=== PATIENT | male | born 1960 | race Caucasian/White ===

== ENCOUNTER 2019-01-06 10:51 | Emergency (ER) | payer OTHER ==
[2019-01-06] MEDS: Diltiazem 50 MG/10 ML SDV IVPUSH ONE (11:12)
[2019-01-06] MEDS: Sodium Chloride 0.9% 10 ML Syringe FLUSH PRN (11:15)
[2019-01-06] MEDS: Diltiazem 50 MG/10 ML SDV ONE (11:16)
[2019-01-06] MEDS: Sodium Chloride 0.9% 1,000 ML IV SCH (11:29)
--- NOTE | 2019-01-06 11:52 | EDM.PDOC ---
ED HPI GENERAL MEDICAL PROBLEM - General Chief Complaint: Cardiovascular Problem Stated Complaint: POSSIBLE HEART ATTACK Time Seen by Provider: 01/06/19 11:02 Source of Information: Reports: Patient, RN Notes Reviewed - History of Present Illness INITIAL COMMENTS - FREE TEXT/NARRATIVE: 58 year old male with onset of palpitations, dizziness about 1 hr ago. No chest pain or dyspnea today. Has had episodes like this in the past many times , usually brief. The palpitations this time are persisting. Has never been diagnosed with a fib. Hx Htn on meds for that. No other known medical problems , does not smoke. No other known medical problems. - Related Data Allergies Allergy/AdvReac Type Severity Reaction Status Date / Time No Known Allergies Allergy Verified 01/06/19 11:03 Home Meds: Home Meds Lisinopril/Hydrochlorothiazide [Lisinopril-Hctz 10-12.5 mg Tab] 1 tab PO DAILY 07/02/15 [History] Metoprolol Succinate [Toprol XL] 25 mg PO DAILY 07/02/15 [History] Diltiazem [Cardizem CD] 120 mg PO DAILY #30 cap.er 01/06/19 [Rx] Lisinopril 10 mg PO DAILY #30 tablet 01/06/19 [Rx] Past Medical History HEENT History: Reports: Impaired Vision Cardiovascular History: Reports: High Cholesterol, Hypertension - Past Surgical History Other HEENT Surgeries/Procedures: sx on nose Other Musculoskeletal Surgeries/Procedures:: 2 hernia repairs to the groin area Social & Family History - Tobacco Use Smoking Status *Q: Never Smoker - Caffeine Use Caffeine Use: Reports: Soda ED ROS GENERAL - Review of Systems Review Of Systems: See Below Constitutional: Denies: Fever, Chills, Diaphoresis HEENT: Reports: No Symptoms Respiratory: Denies: Shortness of Breath Cardiovascular: Reports: Palpitations. Denies: Chest Pain GI/Abdominal: Denies: Abdominal Pain, Nausea, Vomiting Musculoskeletal: Reports: No Symptoms Skin: Reports: No Symptoms Neurological: Reports: Dizziness. Denies: Numbness, Tingling, Trouble Speaking , Difficulty Walking, Weakness ED EXAM, GENERAL - Physical Exam Exam: See Below General Appearance: Alert, No Apparent Distress Eye Exam: Bilateral Eye: PERRL Throat/Mouth: Normal Inspection, Normal Oropharynx Head: Atraumatic Neck: Supple, Full Range of Motion Respiratory/Chest: No Respiratory Distress, Lungs Clear, Normal Breath Sounds Cardiovascular: Tachycardia, Irregularly Irregular GI/Abdominal: Soft, Non-Tender Back Exam: No: CVA Tenderness (L), CVA Tenderness (R) Extremities: Normal Inspection, Normal Range of Motion. No: Pedal Edema, Leg Pain Neurological: Alert, Oriented, No Motor/Sensory Deficits Skin Exam: Warm, Dry, Normal Color EKG INTERPRETATION EKG Date: 01/06/19 Rhythm: A-Fib [place]: Normal P-Wave: Absent QRS: Normal ST-T: Normal Course - Vital Signs Last Recorded V/S: Last Vital Signs Temp 97.5 F 01/06/19 14:20 Pulse 80 01/06/19 14:20 Resp 20 01/06/19 14:20 BP 127/75 01/06/19 14:20 Pulse Ox 97 01/06/19 14:20 - Orders/Labs/Meds Orders: Active Orders 24 hr Category Date Time Status EKG 12 Lead [EKG Documentation Completion] [RC] STAT Care 01/06/19 11:14 Active Peripheral IV Care [RC] . DIRECTED Care 01/06/19 11:15 Active Peripheral IV Insertion Adult [OM.PC] Stat Oth 01/06/19 11:14 Ordered Labs: Laboratory Tests 01/06/19 01/06/19 Range/Units 11:05 11:05 WBC 9.45 H (4.23-9.07) K/mm3 RBC 5.48 (4.63-6.08) M/mm3 Hgb 17.9 H (13.7-17.5) gm/L Hct 46.8 (40.1-51.0) % MCV 85.4 (79.0-92.2) fl MCH 30.9 (25.7-32.2) pg MCHC 32.8 (32.2-35.5) g/dl RDW Std Deviation 38.3 (35.1-43.9) fL Plt Count 270 (163-337) K/mm3 MPV 9.2 L (9.4-12.3) fl Neut % (Auto) 59.1 (34.0-67.9) % Lymph % (Auto) 32.7 (21.8-53.1) % [place] % (Auto) 7.1 (5.3-12.2) % Eos % (Auto) 0.8 (0.8-7.0) Baso % (Auto) 0.3 (0.1-1.2) % Neut # (Auto) 5.58 H (1.78-5.38) K/mm3 Lymph # (Auto) 3.09 (1.32-3.57) K/mm3 [place] # (Auto) 0.67 (0.30-0.82) K/mm3 Eos # (Auto) 0.08 (0.04-0.54) K/mm3 Baso # (Auto) 0.03 (0.01-0.08) K/mm3 Manual Slide Review Abnormal smear Sodium 139 (136-145) mEq/L Potassium 3.5 (3.5-5.1) mEq/L Chloride 103 (98-107) mEq/L Carbon Dioxide 21 (21-32) mEq/L Anion Gap 18.5 H (5-15) BUN 11 (7-18) mg/dL Creatinine 1.0 (0.7-1.3) mg/dL Est Cr Clr Drug Dosing 85.17 mL/min Estimated GFR (MDRD) > 60 (>60) mL/min BUN/Creatinine Ratio 11.0 L (14-18) Glucose 120 H (74-106) mg/dL Calcium 9.8 (8.5-10.1) mg/dL Total Bilirubin 1.8 H (0.2-1.0) mg/dL AST 27 (15-37) U/L ALT 49 (16-63) U/L Alkaline Phosphatase 105 (46-116) U/L Troponin I < 0.017 (0.00-0.056) ng/mL Total Protein 7.7 (6.4-8.2) g/dl Albumin 4.1 (3.4-5.0) g/dl Globulin 3.6 gm/dL Albumin/Globulin Ratio 1.1 (1-2) Meds: Medications Discontinued Medications Generic Name Dose Route Start Last Admin Trade Name Freq PRN Reason Stop Dose Admin Diltiazem HCl Confirm 01/06/19 11:08 01/06/19 11:16 Cardizem Administered 01/06/19 11:09 Not Given Dose 50 mg .ROUTE .STK-MED ONE Diltiazem HCl 20 mg 01/06/19 11:15 01/06/19 11:12 Cardizem IVPUSH 01/06/19 11:16 20 mg ONETIME ONE Administration Diltiazem HCl Confirm 01/06/19 13:15 01/06/19 13:20 Cardizem Administered 01/06/19 13:16 Not Given Dose 120 mg .ROUTE .STK-MED ONE Diltiazem HCl 120 mg 01/06/19 13:45 01/06/19 13:35 Cardizem Cd PO 01/06/19 13:46 120 mg ONETIME ONE Administration Sodium Chloride 1,000 mls @ 150 mls/hr 01/06/19 11:15 01/06/19 11:29 Normal Saline IV 150 mls/hr ASDIRECTED MITESH Administration Sodium Chloride 500 mls @ 999 mls/hr 01/06/19 13:08 Normal Saline IV 01/06/19 13:38 .BOLUS ONE Sodium Chloride 10 ml 01/06/19 11:14 01/06/19 11:15 Saline Flush FLUSH 10 ml ASDIRECTED PRN Administration Keep Vein Open - Re-Assessments/Exams Free Text/Narrative Re-Assessment/Exam: 01/06/19 21:40 with diltiazam 20 mg IV his heart rate came down into the 80's. Continued a fib for awhile and than converted about an hour after IV diltiazam. We did give diltiazam 120 mg PO. Labs, CXR nl. He stayed in sinus rythm. Discharge instr. as documented. Departure - Departure Time of Disposition: 14:30 Disposition: Home, Self-Care 01 Condition: Fair Clinical Impression: Atrial fibrillation with RVR Prescriptions: Diltiazem [Cardizem CD] 120 mg PO DAILY #30 cap.er Lisinopril 10 mg PO DAILY #30 tablet Instructions: Atrial Fibrillation, [id number] Referrals: Bandar Valdez MD [Primary Care Provider] - Forms: ED Department Discharge Additional Instructions: off work the remainder of today, stop the lisinopril/hctz. start lisinopril 10 mg daily and diltiazam 120 mg daily. Check your BP and heart rate once or twice daily and keep a log for your regular medical provider. Follow up with your regular medical provider in about 6 to 8 days, call for appt. return to ED as needed if symptoms reoccuring or worsening in any way. - My Orders Last 24 Hours: My Active Orders 01/06/19 11:14 EKG 12 Lead [EKG Documentation Completion] [RC] STAT Peripheral IV Insertion Adult [OM.PC] Stat 01/06/19 11:15 Peripheral IV Care [RC] . DIRECTED - Assessment/Plan Last 24 Hours: My Active Orders 01/06/19 11:14 EKG 12 Lead [EKG Documentation Completion] [RC] STAT Peripheral IV Insertion Adult [OM.PC] Stat 01/06/19 11:15 Peripheral IV Care [RC] . DIRECTED
--- NOTE | 2019-01-06 11:57 | CR ---
Chest: Portable view of the chest was obtained. Comparison: Prior chest x-ray of 07/02/15. Heart size and mediastinum are normal. Lungs are clear. Slight scoliosis is noted within the spine. Mild degenerative spurring is noted within the spine. Impression: 1. Nothing acute is seen on portable chest x-ray. Diagnostic code #2
[2019-01-06] MEDS ORDERED: Diltiazem 120 MG Cap.CD PO ONE (13:07)
[2019-01-06] MEDS ORDERED: Sodium Chloride 0.9% 500 ML IV ONE (13:08)
[2019-01-06] MEDS: Diltiazem IR 60 MG Tab ONE (13:20)
[2019-01-06] MEDS: Diltiazem 120 MG Cap.CD PO ONE (13:35)
[2019-01-06 16:49] VITALS: BP 127/75
== END 2019-01-06 14:50 | disposition home or self-care (01) ==
LOC: JD.ED 10:51
DX: I48.91 Unspecified atrial fibrillation (principal); I10 Essential (primary) hypertension; Z79.899 Other long term (current) drug therapy
CPT/HCPCS: 36415; 71045; 80053; 84484; 85025; 93005; 96361; 96374; 99285; A9270; J3490; J7040; 93010; 99284

== ENCOUNTER 2019-09-15 21:48 | Emergency (ER) | payer SELFPAY ==
[2019-09-15 21:57] VITALS: BP 164/89; PULSE 70
--- NOTE | 2019-09-16 02:02 | EDM.PDOC ---
ED HPI GENERAL MEDICAL PROBLEM - General Chief Complaint: Cardiovascular Problem Stated Complaint: HEART IN A-FIB Time Seen by Provider: 09/16/19 00:47 Source of Information: Reports: Patient, Family () History Limitations: Reports: No Limitations - History of Present Illness INITIAL COMMENTS - FREE TEXT/NARRATIVE: Mr. Peres is a very pleasant 59-year-old man with a past medical history significant for paroxysmal atrial fibrillation, initially diagnosed in this ED on 01/06/2019. He states that he subsequently followed up with a Pouncing Lathe Operator who performed a transthoracic echocardiogram, which the patient states was normal. He was started on Xarelto and Toprol-XL. He states that he has been asymptomatic until tonight. He states that around 19:50, he developed a "fluttering" sensation in his chest that lasted for about a minute, then, around 21:30, while in bed, he felt that his heart was going fast and irregular. He became diaphoretic. He states that he got up, felt fine, but then developed the same symptoms when en route to the ED. His symptoms resolved prior to arrival to the ED, and have not recurred since. The patient reports that his lungs have felt heavy for the past few days, but he denies recent fever or chills, cough, chest discomfort, nausea, vomiting, constipation, diarrhea, or urinary symptoms. No recent headache or ear pain. The patient's PCP is Dr. Bandar Valdez. His Pouncing Lathe Operator is Dr. Riky Parr. The patient believes that he last saw Dr. Parr in April. The patient did receive an influenza vaccine this season. - Related Data Allergies Allergy/AdvReac Type Severity Reaction Status Date / Time No Known Allergies Allergy Verified 09/15/19 21:57 Home Meds: Home Meds Lisinopril/Hydrochlorothiazide [Lisinopril-Hctz 10-12.5 mg Tab] 1 tab PO DAILY 07/02/15 [History] Metoprolol Succinate [Toprol XL] 25 mg PO BID 07/02/15 [History] Aspirin 81 mg PO DAILY 09/15/19 [History] Rivaroxaban [Xarelto] 0 mg PO DAILY 09/15/19 [History] atorvaSTATin [Lipitor] 20 mg PO BEDTIME 09/15/19 [History] Past Medical History HEENT History: Reports: Impaired Vision Cardiovascular History: Reports: Afib (paroxysmal), High Cholesterol, Hypertension Endocrine/Metabolic History: Reports: Obesity/BMI 30+, Other (See Below) ( Prediabetes) - Past Surgical History HEENT Surgical History: Reports: Naso-Sinus Surgery (Rhinoplasty), Oral Surgery (wisdom teeth extraction), Tonsillectomy GI Surgical History: Reports: Hernia, Inguinal (bilateral, x 2) Social & Family History - Tobacco Use Smoking Status *Q: Never Smoker - Caffeine Use Caffeine Use: Reports: Tea - Alcohol Use Alcohol Use History: Yes Alcohol Use Frequency: Socially - Recreational Drug Use Recreational Drug Use: No - Living Situation & Occupation Living situation: Reports: , with Spouse, with Family (3 kids) 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 ED EXAM, GENERAL - Physical Exam Exam: See Below Exam Limited By: No Limitations General Appearance: Alert, WD/WN, No Apparent Distress Eye Exam: Bilateral Eye: EOMI, Normal Inspection Ears: Normal External Exam, Hearing Grossly Normal Nose: Normal Inspection Throat/Mouth: Normal Inspection, Normal Lips, Normal Voice, No Airway Compromise Head: Atraumatic, Normocephalic Neck: Normal Inspection, Full Range of Motion Respiratory/Chest: No Respiratory Distress, Lungs Clear, Normal Breath Sounds, No Accessory Muscle Use Cardiovascular: Normal Peripheral Pulses, Regular Rate, Rhythm, No Edema, No Gallop, No JVD, No Murmur, No Rub Peripheral Pulses: 4+: Radial (L), Radial (R) GI/Abdominal: Normal Bowel Sounds, Soft, Non-Tender, No Organomegaly, No Distention, No Abnormal Bruit, No Mass (Male) Exam: Deferred Rectal (Males) Exam: Deferred Back Exam: Normal Inspection, Full Range of Motion, NT Extremities: Normal Inspection, Normal Range of Motion, No Pedal Edema, Normal Capillary Refill Neurological: Alert, Oriented, Normal Cognition, No Motor/Sensory Deficits Psychiatric: Normal Affect Skin Exam: Warm, Dry, Intact, Normal Color, No Rash EKG INTERPRETATION EKG Date: 09/15/19 Time: 21:51 Rhythm: NSR Rate (Beats/Min): 68 [place]: Normal P-Wave: Present (1 AVB) QRS: Normal ST-T: Normal QT: Normal Comparison: Change From Previous EKG (Was in A-fib w/ RVR 01/06/2019) Course - Vital Signs Last Recorded V/S: Last Vital Signs Temp 36.4 C 09/15/19 21:53 Pulse 70 09/15/19 21:53 Resp 16 09/15/19 21:53 BP 164/89 H 09/15/19 21:53 Pulse Ox 98 09/15/19 21:53 - Orders/Labs/Meds Labs: Laboratory Tests 09/15/19 09/15/19 09/15/19 Range/Units 21:59 21:59 21:59 WBC 8.34 (4.23-9.07) K/mm3 RBC 4.80 (4.63-6.08) M/mm3 Hgb 15.1 D (13.7-17.5) gm/dl Hct 42.2 (40.1-51.0) % MCV 87.9 (79.0-92.2) fl MCH 31.5 (25.7-32.2) pg MCHC 35.8 H (32.2-35.5) g/dl RDW Std Deviation 38.8 (35.1-43.9) fL Plt Count 237 (163-337) K/mm3 MPV 9.3 L (9.4-12.3) fl Neut % (Auto) 47.8 (34.0-67.9) % Lymph % (Auto) 40.8 (21.8-53.1) % [place] % (Auto) 9.0 (5.3-12.2) % Eos % (Auto) 1.8 (0.8-7.0) Baso % (Auto) 0.2 (0.1-1.2) % Neut # (Auto) 3.99 (1.78-5.38) K/mm3 Lymph # (Auto) 3.40 (1.32-3.57) K/mm3 [place] # (Auto) 0.75 (0.30-0.82) K/mm3 Eos # (Auto) 0.15 (0.04-0.54) K/mm3 Baso # (Auto) 0.02 (0.01-0.08) K/mm3 Sodium 142 (136-145) mEq/L Potassium 3.7 (3.5-5.1) mEq/L Chloride 106 (98-107) mEq/L Carbon Dioxide 28 (21-32) mEq/L Anion Gap 11.7 (5-15) BUN 19 H (7-18) mg/dL Creatinine 1.1 (0.7-1.3) mg/dL Est Cr Clr Drug Dosing 76.50 mL/min Estimated GFR (MDRD) > 60 (>60) mL/min BUN/Creatinine Ratio 17.3 (14-18) Glucose 115 H (74-106) mg/dL Calcium 8.9 (8.5-10.1) mg/dL Magnesium 2.1 (1.8-2.4) mg/dl Total Bilirubin 1.2 H (0.2-1.0) mg/dL AST 19 (15-37) U/L ALT 37 (16-63) U/L Alkaline Phosphatase 79 (46-116) U/L Troponin I < 0.017 (0.00-0.056) ng/mL Total Protein 7.1 (6.4-8.2) g/dl Albumin 3.8 (3.4-5.0) g/dl Globulin 3.3 gm/dL Albumin/Globulin Ratio 1.2 (1-2) TSH 3rd Generation 1.407 (0.358-3.74) uIU/mL - Re-Assessments/Exams Free Text/Narrative Re-Assessment/Exam: 09/16/19 01:56 It has been very busy in the ED tonight, and I did not get into see the patient and his until after they had been here for about 3 hours. They were initially upset about the wait, however, we discussed the patient's medical condition at length, and I believe they are happy with our care. By history, the patient likely was suffering from atrial fibrillation earlier tonight, however, his symptoms had resolved by the time he arrived to the ED, and he has not experienced any symptoms since. The patient had been told by his Pouncing Lathe Operator to come immediately to the ED if he reexperiences symptoms of atrial fibrillation, and after discussing his situation at length, I suspect that it is because his Pouncing Lathe Operator would like to document a repeat episode of atrial fibrillation, which could then qualify the patient for consideration for an ablation. Unfortunately, we are unable to document that tonight. The triage nurse had ordered some blood work, a chest x-ray, and the ECG, all of which are unremarkable, however, they did not include a magnesium level or TSH, which I believe should be done in the setting of atrial fibrillation. Lab tells me that they can have it done in 20 minutes. 2-view chest radiograph reviewed. The cardiac silhouette is within normal limits. No pulmonary vascular congestion. No pleural effusions. No focal infiltrate. No pneumothorax. Mild thoracic scoliosis incidentally noted. Formal read per the Radiologist pending. 09/16/19 02:24 The patient's magnesium level and TSH levels are within normal limits. I will discharge the patient home, to have him follow-up with his Pouncing Lathe Operator. In the meantime, he should continue to take all of his medications as currently prescribed. Departure - Departure Time of Disposition: 02:25 Disposition: Home, Self-Care 01 Condition: Good Clinical Impression: Paroxysmal atrial fibrillation Referrals: Bandar Valdez MD [Primary Care Provider] - Riky Parr DO [Ordering Only Provider] - Forms: ED Department Discharge Additional Instructions: You were seen in the emergency room after developing a brief "fluttering" sensation in your chest, followed by a fast and irregular-feeling heartbeat and feeling very sweaty, symptoms that resolved prior to arrival to the ER. Workup in the ER included blood work, a chest x-ray, and an ECG. Your entire workup was unremarkable. You were not in atrial fibrillation, your blood work was unremarkable, and your chest x-ray was essentially normal. Based on your history, you were most likely in atrial fibrillation earlier, however, unfortunately, we were unable to document that. No changes to your usual medications were made. We recommend that you continue to take your medications as currently prescribed. We recommend that you follow-up with your Pouncing Lathe Operator, Dr. Riky Parr, at the next available appointment, to discuss treatment options. If you reexperience palpitations, we recommend that you return to the ER as soon as possible, so that we can document whether you are back in A-fib or not. If any other problems, please do not hesitate to return to the ER.
--- NOTE | 2019-09-17 17:24 | CR ---
Chest: Two views of the chest were obtained. Comparison: Prior chest x-ray of 01/06/19. Heart size and mediastinum are normal. Lungs are clear. Bony structures show degenerative endplate spurring within the spine with disc space narrowing. Impression: 1. Nothing acute is seen on two-view chest x-ray. Diagnostic code #2
== END 2019-09-16 02:52 | disposition home or self-care (01) ==
LOC: JD.ED 21:48
DX: I48.0 Paroxysmal atrial fibrillation (principal); E78.00 Pure hypercholesterolemia, unspecified; I10 Essential (primary) hypertension; E66.9 Obesity, unspecified; Z68.30 Body mass index [BMI] 30.0-30.9, adult; Z79.01 Long term (current) use of anticoagulants; Z79.82 Long term (current) use of aspirin; Z79.899 Other long term (current) drug therapy
CPT/HCPCS: 36415; 71046; 71046-26; 80053; 83735; 84443; 84484; 85025; 93005; 99285-25

== ENCOUNTER 2020-10-13 19:52 | Emergency (ER) | payer MEDICAID ==
[2020-10-13] MEDS ORDERED: Metoprolol Tartrate 5 MG/5 ML SDV IVPUSH ONE ×2 (20:59→22:12)
--- NOTE | 2020-10-13 21:06 | EDM.PDOC ---
ED HPI GENERAL MEDICAL PROBLEM - General Chief Complaint: Cardiovascular Problem Stated Complaint: IRREGULAR HEART BEAT Time Seen by Provider: 10/13/20 20:40 - History of Present Illness INITIAL COMMENTS - FREE TEXT/NARRATIVE: 60-year-old male presents the emergency room with palpitations. Patient has history of atrial fibrillation he is on Xarelto. He has not had any associated chest pain chest pressure breathing difficulties or shortness of breath. Over the last 12 to 18 hours of the patient is noted palpitations and an increased pulse rate. Patient has a history of atrial fibrillation going back a couple of years. Patient has not had any recent illnesses no cough congestion. Overall the patient's been doing pretty well but he is concerned about his rapid heart rate. - Related Data Allergies Allergy/AdvReac Type Severity Reaction Status Date / Time No Known Allergies Allergy Verified 10/13/20 20:03 Home Meds: Home Meds Lisinopril/Hydrochlorothiazide [Lisinopril-Hctz 10-12.5 mg Tab] 1 tab PO DAILY 07/02/15 [History] Metoprolol Succinate [Toprol XL] 25 mg PO BID 07/02/15 [History] Aspirin 81 mg PO DAILY 09/15/19 [History] Rivaroxaban [Xarelto] 0 mg PO DAILY 09/15/19 [History] atorvaSTATin [Lipitor] 20 mg PO BEDTIME 09/15/19 [History] Multivitamin 1 each PO DAILY 10/13/20 [History] Zinc 0 mg PO DAILY 10/13/20 [History] Past Medical History HEENT History: Reports: Impaired Vision Cardiovascular History: Reports: Afib, High Cholesterol, Hypertension Respiratory History: Reports: None Gastrointestinal History: Reports: None Genitourinary History: Reports: None Musculoskeletal History: Reports: None Neurological History: Reports: None Psychiatric History: Reports: None Endocrine/Metabolic History: Reports: Obesity/BMI 30+, Other (See Below) Other Endocrine/Metabolic History: PreDiabetic Hematologic History: Reports: Anticoagulation Therapy Immunologic History: Reports: None Oncologic (Cancer) History: Reports: None Dermatologic History: Reports: None - Infectious Disease History Infectious Disease History: Reports: None - Past Surgical History HEENT Surgical History: Reports: Naso-Sinus Surgery, Oral Surgery, Tonsillectomy Other HEENT Surgeries/Procedures: sx on nose GI Surgical History: Reports: Hernia, Inguinal Social & Family History - Tobacco Use Tobacco Use Status *Q: Never Tobacco User - Caffeine Use Caffeine Use: Reports: None - Recreational Drug Use Recreational Drug Use: No - Living Situation & Occupation Living situation: Reports: , with Spouse, with Family (3 kids) 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 Denies: Fever, Chills HEENT: Reports: No Symptoms Respiratory: Reports: No Symptoms Cardiovascular: Reports: Palpitations. Denies: Chest Pain, Edema Endocrine: Reports: No Symptoms GI/Abdominal: Reports: No Symptoms Musculoskeletal: Reports: No Symptoms Skin: Reports: No Symptoms Neurological: Reports: No Symptoms ED EXAM, GENERAL - Physical Exam Exam: See Below Exam Limited By: No Limitations General Appearance: Alert, No Apparent Distress Head: Atraumatic, Normocephalic Neck: Normal Inspection, Supple, Non-Tender, Full Range of Motion Respiratory/Chest: No Respiratory Distress, Lungs Clear, Normal Breath Sounds Cardiovascular: No Edema, No Rub, Tachycardia (Rate 110-130), Irregularly Irregular Extremities: Normal Inspection, No Pedal Edema Neurological: Alert, Oriented Psychiatric: Normal Affect, Normal Mood Course - Vital Signs Last Recorded V/S: Last Vital Signs Temp 35.9 C L 10/13/20 19:59 Pulse 103 H 10/13/20 22:36 Resp 18 10/13/20 20:43 BP 104/66 10/13/20 22:36 Pulse Ox 96 10/13/20 20:43 - Orders/Labs/Meds Orders: Active Orders 24 hr Category Date Time Status EKG 12 Lead [EKG Documentation Completion] [RC] STAT Care 10/13/20 20:00 Active Labs: Laboratory Tests 10/13/20 10/13/20 10/13/20 Range/Units 20:05 20:05 20:05 WBC 8.43 (4.23-9.07) K/mm3 RBC 4.92 (4.63-6.08) M/mm3 Hgb 15.5 (13.7-17.5) gm/dl Hct 43.3 (40.1-51.0) % MCV 88.0 (79.0-92.2) fl MCH 31.5 (25.7-32.2) pg MCHC 35.8 H (32.2-35.5) g/dl RDW Std Deviation 38.8 (35.1-43.9) fL Plt Count 259 (163-337) K/mm3 MPV 9.0 L (9.4-12.3) fl Neut % (Auto) 51.9 (34.0-67.9) % Lymph % (Auto) 37.4 (21.8-53.1) % Power % (Auto) 8.3 (5.3-12.2) % Eos % (Auto) 1.7 (0.8-7.0) Baso % (Auto) 0.5 (0.1-1.2) % Neut # (Auto) 4.38 (1.78-5.38) K/mm3 Lymph # (Auto) 3.15 (1.32-3.57) K/mm3 Power # (Auto) 0.70 (0.30-0.82) K/mm3 Eos # (Auto) 0.14 (0.04-0.54) K/mm3 Baso # (Auto) 0.04 (0.01-0.08) K/mm3 PT 13.5 H (9.7-12.0) SECONDS INR 1.27 APTT 32.2 H (21.7-31.4) SECONDS Sodium 137 (136-145) mEq/L Potassium 3.8 (3.5-5.1) mEq/L Chloride 103 (98-107) mEq/L Carbon Dioxide 22 (21-32) mEq/L Anion Gap 15.8 H (5-15) BUN 20 H (7-18) mg/dL Creatinine 1.1 (0.7-1.3) mg/dL Est Cr Clr Drug Dosing 77.96 mL/min Estimated GFR (MDRD) > 60 (>60) mL/min BUN/Creatinine Ratio 18.2 H (14-18) Glucose 144 H (74-106) mg/dL Calcium 8.9 (8.5-10.1) mg/dL Magnesium 1.9 (1.8-2.4) mg/dl Total Bilirubin 1.3 H (0.2-1.0) mg/dL AST 26 (15-37) U/L ALT 44 (16-63) U/L Alkaline Phosphatase 79 (46-116) U/L Troponin I < 0.017 (0.00-0.056) ng/mL Total Protein 7.0 (6.4-8.2) g/dl Albumin 3.7 (3.4-5.0) g/dl Globulin 3.3 gm/dL Albumin/Globulin Ratio 1.1 (1-2) Meds: Medications Discontinued Medications Generic Name Dose Route Start Last Admin Trade Name Angella PRN Reason Stop Dose Admin Metoprolol Tartrate 2.5 mg 10/13/20 20:59 10/13/20 21:13 Lopressor IVPUSH 10/13/20 21:00 2.5 mg ONETIME ONE Administration Metoprolol Tartrate 2.5 mg 10/13/20 22:12 10/13/20 22:36 Lopressor IVPUSH 10/13/20 22:13 2.5 mg ONETIME ONE Administration - Re-Assessments/Exams Free Text/Narrative Re-Assessment/Exam: 10/13/20 23:55 The patient is really done well here in the emergency department. Of concern his pulse rate up was higher than 1 would expect on a medication regimen that kept him fairly well controlled. 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 Evaluation is unrevealing. Here in the department he received 2.5 mg of IV Lopressor this did slow his rate down a little bit but ultimately he required another 2.5 mg. Now for the most part at rest his pulse is less than 100. And he feels good. I have considered adjusting his oral medication however will withhold from this at this point and just see how the patient does I do not want to risk him getting bradycardic or getting hypotensive while driving potentially causing harm to himself or others. We will have the patient follow- up with his regular physician for close follow-up. Departure - Departure Time of Disposition: 23:57 Disposition: Home, Self-Care 01 Clinical Impression: Atrial fibrillation with rapid ventricular response Referrals: Bandar Valdez MD [Primary Care Provider] - Forms: ED Department Discharge Additional Instructions: Turn to the emergency room with any questions problems or worsening symptoms. Continue your usual routine medications. However, I would suggest starting oral magnesium supplements, such as magnesium oxide 400 mg 1 daily. Follow-up with your physician early this next week for recheck. Sepsis Event Note (ED) - Evaluation Sepsis Screening Result: No Definite Risk - Focused Exam Vital Signs: Vital Signs Temp Pulse Pulse Resp BP BP Pulse Ox 10/13/20 22:36 103 H 104/66 10/13/20 21:20 110 H 103/74 10/13/20 21:13 85 115/85 10/13/20 20:43 106 H 18 122/65 96 10/13/20 19:59 35.9 C L 126 H 16 145/73 H 97 - My Orders Last 24 Hours: My Active Orders 10/13/20 20:00 EKG 12 Lead [EKG Documentation Completion] [RC] STAT - Assessment/Plan Last 24 Hours: My Active Orders 10/13/20 20:00 EKG 12 Lead [EKG Documentation Completion] [RC] STAT
[2020-10-13 22:37] VITALS: BP 104/66; PULSE 103
== END 2020-10-14 00:10 | disposition home or self-care (01) ==
LOC: JD.ED 19:52
DX: I48.91 Unspecified atrial fibrillation (principal); I10 Essential (primary) hypertension; E78.00 Pure hypercholesterolemia, unspecified; E66.9 Obesity, unspecified; Z68.32 Body mass index [BMI] 32.0-32.9, adult; Z79.899 Other long term (current) drug therapy; Z79.82 Long term (current) use of aspirin; Z79.01 Long term (current) use of anticoagulants
CPT/HCPCS: 36415; 80053; 83735; 84484; 85025; 85610; 85730; 93005; 96374; 96376; 99285; J3490; 93010; 99284

== ENCOUNTER 2021-01-30 17:00 | Emergency (ER) | payer MEDICAID, OTHER ==
[2021-01-30] MEDS ORDERED: Sodium Chloride 0.9% 10 ML Syringe FLUSH PRN (17:38)
[2021-01-30] MEDS ORDERED: Diltiazem 50 MG/10 ML SDV IVPUSH ONE (17:46)
--- NOTE | 2021-01-30 18:35 | CR ---
Chest: Portable view of the chest was obtained in the upright position. Comparison: Prior chest x-ray of 09/15/19. Heart size and mediastinum are normal. Minimal atelectasis is seen within left mid to lower lung. Lungs otherwise are clear. Slight scoliosis is noted within the spine. No acute osseous abnormality is appreciated. Impression: 1. Slight atelectasis within left mid to lower lung. 2. Nothing acute is appreciated. Diagnostic code #2
--- NOTE | 2021-01-30 18:36 | EDM.PDOC ---
ED HPI GENERAL MEDICAL PROBLEM - General Chief Complaint: Cardiovascular Problem Stated Complaint: AFIB Time Seen by Provider: 01/30/21 17:07 Source of Information: Reports: Patient History Limitations: Reports: No Limitations - History of Present Illness INITIAL COMMENTS - FREE TEXT/NARRATIVE: 60-year-old male presents to the emergency department today with complaints of Palpitations. Patient has a history of intermittent atrial fib and he currently takes Xarelto and metoprolol 50 mg once daily. He states that he was last seen in the ER September for atrial fib that he could not convert. He states that sometimes he can cough and convert himself back into sinus rhythm. He states that today he developed the palpitations at about 330 this afternoon and did attempt to cough several times however was not able to convert. Denies any chest pain, chest pressure, shortness of breath, or dizziness. Denies any recent fever, chills, nausea, vomiting or diarrhea. - Related Data Allergies Allergy/AdvReac Type Severity Reaction Status Date / Time No Known Allergies Allergy Verified 10/13/20 20:03 Home Meds: Home Meds Lisinopril/Hydrochlorothiazide [Lisinopril-Hctz 10-12.5 mg Tab] 1 tab PO DAILY 07/02/15 [History] Aspirin 81 mg PO DAILY 09/15/19 [History] Rivaroxaban [Xarelto] 20 mg PO DAILY 09/15/19 [History] atorvaSTATin [Lipitor] 40 mg PO BEDTIME 09/15/19 [History] Multivitamin 1 each PO DAILY 10/13/20 [History] Zinc 50 mg PO DAILY 10/13/20 [History] ALPRAZolam [Xanax] 0.5 mg PO DAILY PRN 01/30/21 [History] Allopurinol [Zyloprim] 100 mg PO DAILY 01/30/21 [History] Metoprolol Succinate [Toprol XL 50mg] 50 mg PO DAILY 01/30/21 [History] dilTIAZem HCL [Diltiazem 24Hr ER (Xr)] 120 mg PO BEDTIME #20 cap.er.deg 01/30/21 [Rx] Past Medical History HEENT History: Reports: Impaired Vision Cardiovascular History: Reports: Afib, High Cholesterol, Hypertension Respiratory History: Reports: None Gastrointestinal History: Reports: None Genitourinary History: Reports: None Musculoskeletal History: Reports: None Neurological History: Reports: None Psychiatric History: Reports: None Endocrine/Metabolic History: Reports: Obesity/BMI 30+, Other (See Below) Other Endocrine/Metabolic History: PreDiabetic Hematologic History: Reports: Anticoagulation Therapy Immunologic History: Reports: None Oncologic (Cancer) History: Reports: None Dermatologic History: Reports: None - Infectious Disease History Infectious Disease History: Reports: None - Past Surgical History HEENT Surgical History: Reports: Naso-Sinus Surgery, Oral Surgery, Tonsillectomy Other HEENT Surgeries/Procedures: sx on nose GI Surgical History: Reports: Hernia, Inguinal Other Musculoskeletal Surgeries/Procedures:: 2 hernia repairs to the groin area Social & Family History - Tobacco Use Tobacco Use Status *Q: Never Tobacco User Second Hand Smoke Exposure: No - Caffeine Use Caffeine Use: Reports: None - Recreational Drug Use Recreational Drug Use: No - Living Situation & Occupation Living situation: Reports: , with Spouse, with Family (3 kids) 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 Denies: Diaphoresis HEENT: Reports: No Symptoms Respiratory: Reports: No Symptoms. Denies: Shortness of Breath, Pleuritic Chest Pain, Cough Cardiovascular: Reports: Palpitations. Denies: Chest Pain, Dyspnea on Exertion, Edema, Lightheadedness, Syncope Endocrine: Reports: No Symptoms GI/Abdominal: Reports: No Symptoms : Reports: No Symptoms Musculoskeletal: Reports: No Symptoms Skin: Reports: No Symptoms Neurological: Reports: No Symptoms Psychiatric: Reports: No Symptoms Hematologic/Lymphatic: Reports: No Symptoms Immunologic: Reports: No Symptoms ED EXAM, GENERAL - Physical Exam Exam: See Below Exam Limited By: No Limitations General Appearance: Alert, WD/WN, No Apparent Distress Eye Exam: Bilateral Eye: PERRL Ears: Normal External Exam, Hearing Grossly Normal Nose: Normal Inspection Throat/Mouth: Normal Inspection, Normal Lips, Normal Voice, No Airway Compromise Head: Atraumatic, Normocephalic Neck: Normal Inspection, Supple, Non-Tender, Full Range of Motion Respiratory/Chest: No Respiratory Distress, Lungs Clear, Normal Breath Sounds, No Accessory Muscle Use, Chest Non-Tender Cardiovascular: Normal Peripheral Pulses, No Edema, No Murmur, Irregularly Irregular. No: Regular Rate, Rhythm GI/Abdominal: Normal Bowel Sounds, Soft, Non-Tender, No Distention (Male) Exam: Deferred Rectal (Males) Exam: Deferred Back Exam: Normal Inspection, Full Range of Motion Extremities: Normal Inspection, Normal Range of Motion, Non-Tender, No Pedal Edema, Normal Capillary Refill Neurological: Alert, Oriented, Normal Cognition Psychiatric: Normal Affect, Normal Mood Skin Exam: Warm, Dry, Intact, Normal Color, No Rash Lymphatic: No Adenopathy #1 Interpretation EKG Date: 01/30/21 Time: 17:08 Rhythm: A-Fib Rate (Beats/Min): 131 P-Wave: Absent QRS: Normal ST-T: Normal QT: Normal EKG Interpretation Comments: Per Dr. Root interpretation: A. fib with rate 100 to 150 bpm; early R wave transition V2-consider right ventricular hypertrophy versus septal hypertrophy; T wave inversion III and aVF-consider inferior wall ischemia; QTC is mildly prolonged Course - Vital Signs Text/Narrative:: 60-year-old male with a history of intermittent atrial fib on Xarelto for anticoagulation and rate controlled with metoprolol. 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 He denied any chest pain/pressure, shortness of breath, or dizziness associated with it. He states he did try to cough a few times as he has been successful with converting into sinus rhythm in the past by coughing however this did not help either. 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 States he was last seen in the emergency department in September 2020. The patient denies smoking or any tobacco use, drinks alcohol rarely, and denies caffeine intake. I have ordered labs, EKG to evaluate patient's regular rhythm, chest x-ray, labs. Discussed the case with Dr. Root and he recommends giving the patient 10mg IVP. Last Recorded V/S: Last Vital Signs Temp 98.1 F 01/30/21 17:07 Pulse 128 H 01/30/21 17:07 Resp 14 01/30/21 17:07 BP 129/94 H 01/30/21 17:07 Pulse Ox 96 01/30/21 17:07 - Orders/Labs/Meds Orders: Active Orders 24 hr Category Date Time Status EKG 12 Lead [EKG Documentation Completion] [RC] STAT Care 01/30/21 17:03 Active Sodium Chloride 0.9% [Saline Flush] Med 01/30/21 17:38 Active 10 ml FLUSH ASDIRECTED PRN Saline Lock Insert [OM.PC] Stat Oth 01/30/21 17:38 Ordered Medication Orders Sodium Chloride (Saline Flush) 10 ml FLUSH ASDIRECTED PRN PRN Reason: Keep Vein Open Last Admin: 01/30/21 17:58 Dose: 10 ml Documented by: SHAYY Labs: Laboratory Tests 01/30/21 01/30/21 Range/Units 17:50 17:50 WBC 10.99 H (4.23-9.07) K/mm3 RBC 5.09 (4.63-6.08) M/mm3 Hgb 16.0 (13.7-17.5) gm/dl Hct 44.7 (40.1-51.0) % MCV 87.8 (79.0-92.2) fl MCH 31.4 (25.7-32.2) pg MCHC 35.8 H (32.2-35.5) g/dl RDW Std Deviation 38.6 (35.1-43.9) fL Plt Count 247 (163-337) K/mm3 MPV 9.1 L (9.4-12.3) fl Neut % (Auto) 58.4 (34.0-67.9) % Lymph % (Auto) 31.4 (21.8-53.1) % Emmet % (Auto) 8.4 (5.3-12.2) % Eos % (Auto) 1.2 (0.8-7.0) Baso % (Auto) 0.2 (0.1-1.2) % Neut # (Auto) 6.43 H (1.78-5.38) K/mm3 Lymph # (Auto) 3.45 (1.32-3.57) K/mm3 Emmet # (Auto) 0.92 H (0.30-0.82) K/mm3 Eos # (Auto) 0.13 (0.04-0.54) K/mm3 Baso # (Auto) 0.02 (0.01-0.08) K/mm3 Manual Slide Review Normal smear Sodium 140 (136-145) mEq/L Potassium 3.8 (3.5-5.1) mEq/L Chloride 103 (98-107) mEq/L Carbon Dioxide 25 (21-32) mEq/L Anion Gap 15.8 H (5-15) BUN 14 (7-18) mg/dL Creatinine 1.0 (0.7-1.3) mg/dL Est Cr Clr Drug Dosing 85.76 mL/min Estimated GFR (MDRD) > 60 (>60) mL/min BUN/Creatinine Ratio 14.0 (14-18) Glucose 110 H (74-106) mg/dL Calcium 9.2 (8.5-10.1) mg/dL Magnesium 1.9 (1.8-2.4) mg/dl Total Bilirubin 1.2 H (0.2-1.0) mg/dL AST 30 (15-37) U/L ALT 50 (16-63) U/L Alkaline Phosphatase 72 (46-116) U/L Troponin I < 0.017 (0.00-0.056) ng/mL Total Protein 7.4 (6.4-8.2) g/dl Albumin 4.0 (3.4-5.0) g/dl Globulin 3.4 gm/dL Albumin/Globulin Ratio 1.2 (1-2) TSH 3rd Generation 1.290 (0.358-3.74) uIU/mL Meds: Medications Generic Name Dose Route Start Last Admin Trade Name Freq PRN Reason Stop Dose Admin Sodium Chloride 10 ml 01/30/21 17:38 01/30/21 17:58 Saline Flush FLUSH 10 ml ASDIRECTED PRN Administration Keep Vein Open Discontinued Medications Generic Name Dose Route Start Last Admin Trade Name Freq PRN Reason Stop Dose Admin Diltiazem HCl 10 mg 01/30/21 17:46 01/30/21 17:58 Cardizem IVPUSH 01/30/21 17:47 10 mg ONETIME ONE Administration Diltiazem HCl 120 mg 01/30/21 19:13 Cardizem Cd PO 01/30/21 19:14 ONETIME ONE - Radiology Interpretation Free Text/Narrative:: Portable view of the chest radiologist impression: 1. Slight atelectasis within the left mid to lower lung. 2. Nothing acute is appreciated. - Re-Assessments/Exams Free Text/Narrative Re-Assessment/Exam: 01/30/21 19:18 Labs reveal a WBC of 10.99, hemoglobin 16.0, hematocrit 44.7, sodium 140, potassium 3.8, anion gap 15.8, BUN 14, creatinine 1.0, glucose 110, magnesium 1.9, total bilirubin 1.2, troponin less than 0.017, TSH 1.290. The patient is still in atrial fibrillation however his heart rate is 80s to 90s. Again discussed the case with Dr. Root and he agrees with starting the patient on Cardizem 120 mg p.o. daily. Patient will receive his first dose in the emergency department this evening. Discussed with the patient the importance of checking his blood pressure. Should he feel dizzy or lightheaded he should check his blood pressure at that time. Patient will need to follow-up with Dr. Valdez in the clinic later this week for follow-up. Departure - Departure Time of Disposition: 19:20 Disposition: Home, Self-Care 01 Condition: Good Clinical Impression: Atrial fibrillation with RVR Prescriptions: dilTIAZem HCL [Diltiazem 24Hr ER (Xr)] 120 mg PO BEDTIME #20 cap.er.deg Referrals: Bandar Valdez MD [Primary Care Provider] - Forms: ED Department Discharge Additional Instructions: You were seen in the emergency department this evening with complaints of atrial fibrillation and palpitations. Electrocardiogram revealed that you were in atr ial fibrillation with a rate ranging from 100 to 150 bpm. You denied any chest pain/pressure, shortness of breath, or dizzy spells. Labs were completed and these were unremarkable. Chest x-ray was completed as well. You were given medication in your IV called diltiazem to slow down your atrial fibrillation and this did seem to control your rate. A prescription for diltiazem has been sent to your pharmacy. You will take diltiazem 120 mg in the evenings. You were given your first dose in the emergency department this evening. Frequent blood pressure checks are recommended. You will need to follow-up with Dr. Valdez later this week for follow-up regarding your atrial fibrillation. Should your condition worsen or change, do not hesitate to return to the emergency department. Sepsis Event Note (ED) - Evaluation Sepsis Screening Result: No Definite Risk - Focused Exam Vital Signs: Vital Signs Temp Pulse Resp BP Pulse Ox 01/30/21 17:07 98.1 F 128 H 14 129/94 H 96 - My Orders Last 24 Hours: My Active Orders 01/30/21 17:03 EKG 12 Lead [EKG Documentation Completion] [RC] STAT 01/30/21 17:38 Sodium Chloride 0.9% [Saline Flush] 10 ml FLUSH ASDIRECTED PRN Saline Lock Insert [OM.PC] Stat - Assessment/Plan Last 24 Hours: My Active Orders 01/30/21 17:03 EKG 12 Lead [EKG Documentation Completion] [RC] STAT 01/30/21 17:38 Sodium Chloride 0.9% [Saline Flush] 10 ml FLUSH ASDIRECTED PRN Saline Lock Insert [OM.PC] Stat
[2021-01-30] MEDS ORDERED: Diltiazem 120 MG Cap.CD PO ONE (19:13)
[2021-01-30 19:22] VITALS: BP 124/73
[2021-01-30 19:36] VITALS: PULSE 102
== END 2021-01-30 19:30 | disposition home or self-care (01) ==
LOC: JD.ED 17:00
DX: I48.91 Unspecified atrial fibrillation (principal); E78.00 Pure hypercholesterolemia, unspecified; I10 Essential (primary) hypertension; E66.9 Obesity, unspecified; Z68.33 Body mass index [BMI] 33.0-33.9, adult; Z79.82 Long term (current) use of aspirin; Z79.01 Long term (current) use of anticoagulants
CPT/HCPCS: 36415; 71045; 80053; 83735; 84443; 84484; 85025; 93005; 96374; 99285; A9270; J3490; 93010

== ENCOUNTER 2021-08-08 23:12 | Emergency (ER) | payer OTHER ==
--- NOTE | 2021-08-08 23:47 | EDM.PDOC ---
ED HPI GENERAL MEDICAL PROBLEM - General Chief Complaint: Cardiovascular Problem Stated Complaint: AFIB Time Seen by Provider: 08/08/21 23:24 Source of Information: Reports: Patient History Limitations: Reports: No Limitations - History of Present Illness Onset: Today Duration: Waxing/Waning Location: Reports: Chest - Related Data Allergies Allergy/AdvReac Type Severity Reaction Status Date / Time No Known Allergies Allergy Verified 10/13/20 20:03 Home Meds: Home Meds Lisinopril/Hydrochlorothiazide [Lisinopril-Hctz 10-12.5 mg Tab] 1 tab PO DAILY 07/02/15 [History] Aspirin 81 mg PO DAILY 09/15/19 [History] Rivaroxaban [Xarelto] 20 mg PO DAILY 09/15/19 [History] atorvaSTATin [Lipitor] 40 mg PO BEDTIME 09/15/19 [History] Multivitamin 1 each PO DAILY 10/13/20 [History] Zinc 50 mg PO DAILY 10/13/20 [History] ALPRAZolam [Xanax] 0.5 mg PO DAILY PRN 01/30/21 [History] Metoprolol Succinate [Toprol XL 50mg] 50 mg PO DAILY 01/30/21 [History] allopurinoL [Zyloprim] 100 mg PO DAILY 01/30/21 [History] dilTIAZem HCL [Diltiazem 24Hr ER (Xr)] 120 mg PO BEDTIME #20 cap.er.deg 01/30/21 [Rx] Past Medical History HEENT History: Reports: Impaired Vision Cardiovascular History: Reports: Afib, High Cholesterol, Hypertension Respiratory History: Reports: None Gastrointestinal History: Reports: None Genitourinary History: Reports: None Musculoskeletal History: Reports: None Neurological History: Reports: None Psychiatric History: Reports: None Endocrine/Metabolic History: Reports: Obesity/BMI 30+, Other (See Below) Other Endocrine/Metabolic History: PreDiabetic Hematologic History: Reports: Anticoagulation Therapy Immunologic History: Reports: None Oncologic (Cancer) History: Reports: None Dermatologic History: Reports: None - Infectious Disease History Infectious Disease History: Reports: None - Past Surgical History HEENT Surgical History: Reports: Naso-Sinus Surgery, Oral Surgery, Tonsillectomy Other HEENT Surgeries/Procedures: sx on nose GI Surgical History: Reports: Hernia, Inguinal Other Musculoskeletal Surgeries/Procedures:: 2 hernia repairs to the groin area Social & Family History - Tobacco Use Tobacco Use Status *Q: Unknown Ever Used Tobacco - Caffeine Use Caffeine Use: Reports: None - Living Situation & Occupation Living situation: Reports: , with Spouse, with Family (3 kids) 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 Constitutional: Reports: No Symptoms Cardiovascular: Reports: Lightheadedness, Palpitations. Denies: Chest Pain GI/Abdominal: Reports: No Symptoms ED EXAM, GENERAL - Physical Exam Exam: See Below Exam Limited By: No Limitations General Appearance: Alert, No Apparent Distress Neck: Normal Inspection Respiratory/Chest: No Respiratory Distress, Lungs Clear Cardiovascular: Tachycardia, Irregularly Irregular GI/Abdominal: Normal Bowel Sounds Back Exam: Normal Inspection Extremities: Normal Inspection, No Pedal Edema Neurological: Alert, Oriented Psychiatric: Normal Affect, Normal Mood Skin Exam: Warm, Dry Lymphatic: No Adenopathy #1 Interpretation Rhythm: A-Fib QRS: Normal ST-T: Normal EKG Interpretation Comments: No fibrillation with rate of 93. No ST or T wave changes appreciated. Course - Vital Signs Text/Narrative:: Patient was given a liter of fluid with 1 g magnesium over an hour and also received 10 mg of diltiazem IV which did slow his heart rate down even further to the 60s to 90 range. Patient remains asymptomatic. His lab work is unremarkable. His EKG showed him to be in atrial fibrillation with a rate of 93. Patient was then discussed with boring mill set up operator at [facility] in [place] who does not want any further interventions done and does not want patient cardioverted in the emergency department and feels patient can be discharged home and will follow up with his boring mill set up operator over the next several days. Last Recorded V/S: Last Vital Signs Temp 96.6 F L 08/08/21 23:19 Pulse 75 08/09/21 01:53 Resp 16 08/09/21 01:53 BP 112/67 08/09/21 01:53 Pulse Ox 99 08/09/21 01:53 - Orders/Labs/Meds Labs: Laboratory Tests 08/09/21 08/09/21 Range/Units 00:03 00:03 WBC 8.45 (4.23-9.07) K/mm3 RBC 5.21 (4.63-6.08) M/mm3 Hgb 16.4 (13.7-17.5) gm/dl Hct 45.6 (40.1-51.0) % MCV 87.5 (79.0-92.2) fl MCH 31.5 (25.7-32.2) pg MCHC 36.0 H (32.2-35.5) g/dl RDW Std Deviation 38.9 (35.1-43.9) fL Plt Count 225 (163-337) K/mm3 MPV 9.0 L (9.4-12.3) fl Neutrophils % (Manual) 61 H (40-60) % Band Neutrophils % 0 (0-10) % Lymphocytes % (Manual) 28 (20-40) % Atypical Lymphs % 0 % Monocytes % (Manual) 7 (2-10) % Eosinophils % (Manual) 4 (0.8-7.0) % Basophils % (Manual) 0 L (0.2-1.2) Platelet Estimate Adequate RBC Morph Comment Normal Sodium 141 (136-145) mEq/L Potassium 3.7 (3.5-5.1) mEq/L Chloride 105 (98-107) mEq/L Carbon Dioxide 26 (21-32) mEq/L Anion Gap 13.7 (5-15) BUN 17 (7-18) mg/dL Creatinine 1.0 (0.7-1.3) mg/dL Est Cr Clr Drug Dosing 84.71 mL/min Estimated GFR (MDRD) > 60 (>60) mL/min BUN/Creatinine Ratio 17.0 (14-18) Glucose 136 H (70-99) mg/dL Calcium 9.0 (8.5-10.1) mg/dL Total Bilirubin 1.2 H (0.2-1.0) mg/dL AST 17 (15-37) U/L ALT 33 (16-63) U/L Alkaline Phosphatase 91 (46-116) U/L Troponin I < 0.017 (0.00-0.056) ng/mL Total Protein 7.2 (6.4-8.2) g/dl Albumin 3.7 (3.4-5.0) g/dl Globulin 3.5 gm/dL Albumin/Globulin Ratio 1.1 (1-2) Meds: Medications Discontinued Medications Generic Name Dose Route Start Last Admin Trade Name Angella PRN Reason Stop Dose Admin Diltiazem HCl 10 mg 08/08/21 23:55 08/09/21 00:05 Diltiazem 50 Mg/10 Ml Sdv IVPUSH 08/08/21 23:56 10 mg ONETIME ONE Administration Sodium Chloride 1,000 mls @ 1,000 mls/hr 08/08/21 23:54 08/09/21 00:06 Normal Saline IV 08/09/21 00:53 1,000 mls/hr ONETIME ONE Administration Magnesium Sulfate/Dextrose 1 100 mls @ 100 mls/hr 08/08/21 23:54 08/09/21 00:05 gm/ Premix IV 08/09/21 00:53 100 mls/hr ONETIME ONE Administration Departure - Departure Time of Disposition: 02:19 Disposition: Home, Self-Care 01 Condition: Good Clinical Impression: Atrial fibrillation with RVR Instructions: Atrial Fibrillation, [id number] Referrals: Bandar Valdez MD [Primary Care Provider] - Forms: ED Department Discharge Additional Instructions: Call your boring mill set up operator in the morning to make an appointment with them this week for recheck. Return to ER if symptoms are worse you are having chest pain or shortness of breath. Sepsis Event Note (ED) - Evaluation Sepsis Screening Result: No Definite Risk - Focused Exam Vital Signs: Vital Signs Temp Pulse Resp BP Pulse Ox 08/09/21 01:53 75 16 112/67 99 08/09/21 00:51 61 16 111/72 98 08/08/21 23:19 96.6 F L 107 H 24 H 141/97 H 98
[2021-08-08] MEDS ORDERED: Sodium Chloride 0.9% 1,000 ML IV ONE (23:54)
[2021-08-08] MEDS ORDERED: Diltiazem 50 MG/10 ML SDV IVPUSH ONE (23:55)
[2021-08-09 01:54] VITALS: BP 112/67
[2021-08-09 02:29] VITALS: PULSE 78
== END 2021-08-09 02:27 | disposition home or self-care (01) ==
LOC: JD.ED 23:12
DX: I48.91 Unspecified atrial fibrillation (principal); I25.10 Atherosclerotic heart disease of native coronary artery without angina pectoris; I10 Essential (primary) hypertension; E66.9 Obesity, unspecified; Z68.29 Body mass index [BMI] 29.0-29.9, adult; Z79.82 Long term (current) use of aspirin; Z79.899 Other long term (current) drug therapy; Z79.01 Long term (current) use of anticoagulants
CPT/HCPCS: 36415; 80053; 84484; 85007; 85027; 93005; 93010; 96365; 96375; 99283; 99285-25; J3475; J3490; J7030

== ENCOUNTER 2021-09-24 08:59 | Emergency (ER) | payer OTHER ==
[2021-09-24 09:35] VITALS: BP 129/86; PULSE 112
--- NOTE | 2021-09-24 11:43 | EDM.PDOC ---
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 Had a similar episode last eveing but less severe. Hx of a fib for many yrs. On diltiazem and metorpolol for rate control. Has not been recently ill. Has had other episodes, especially awareness of rapid heart rate off and on for the past 1 to 2 months. No current chest pain. No recenty cough, dyspnea, fever or chills. - Related Data Allergies Allergy/AdvReac Type Severity Reaction Status Date / Time No Known Allergies Allergy Verified 09/24/21 09:22 Home Meds: Home Meds Lisinopril/Hydrochlorothiazide [Lisinopril-Hctz 10-12.5 mg Tab] 10 - 12.5 mg PO DAILY 07/02/15 [History] Aspirin 81 mg PO DAILY 09/15/19 [History] Rivaroxaban [Xarelto] 20 mg PO PCDINNER 09/15/19 [History] atorvaSTATin [Lipitor] 40 mg PO BEDTIME 09/15/19 [History] Multivitamin 1 each PO DAILY 10/13/20 [History] Zinc 50 mg PO DAILY 10/13/20 [History] ALPRAZolam [Xanax] 0.5 mg PO BEDTIME 01/30/21 [History] Metoprolol Succinate [Toprol XL 50mg] 50 mg PO DAILY 01/30/21 [History] allopurinoL [Zyloprim] 100 mg PO DAILY 01/30/21 [History] dilTIAZem HCL [Diltiazem 24Hr ER (Xr)] 120 mg PO BEDTIME #20 cap.er.deg 01/30/21 [Rx] Cyanocobalamin (Vitamin B12) [Vitamin B12] 1,000 mcg PO DAILY 09/24/21 [History] Fexofenadine/Pseudoephedrine [Joana-D 24 Hour Tablet] 1 tab PO ASDIRECTED PRN 09/24/21 [History] Ketotifen Fumarate [Alaway] 1 drop EYEBOTH ASDIRECTED PRN 09/24/21 [History] Magnesium Oxide [Magnesium] 400 mg PO DAILY 09/24/21 [History] Past Medical History HEENT History: Reports: Allergic Rhinitis, Impaired Vision Other HEENT History: wears eyeglasses. Cardiovascular History: Reports: Afib, High Cholesterol, Hypertension Respiratory History: Reports: None Gastrointestinal History: Reports: None Genitourinary History: Reports: None Musculoskeletal History: Reports: Fracture Neurological History: Reports: None Psychiatric History: Reports: Anxiety Endocrine/Metabolic History: Reports: Obesity/BMI 30+, Other (See Below) Other Endocrine/Metabolic History: PreDiabetic Hematologic History: Reports: Anticoagulation Therapy Immunologic History: Reports: None Oncologic (Cancer) History: Reports: None Dermatologic History: Reports: None - Infectious Disease History Infectious Disease History: Reports: Chicken Pox, Measles, Mumps - Past Surgical History HEENT Surgical History: Reports: Naso-Sinus Surgery, Oral Surgery, Tonsillectomy Other HEENT Surgeries/Procedures: sx on nose GI Surgical History: Reports: Hernia, Inguinal Social & Family History - Tobacco Use Tobacco Use Status *Q: Never Tobacco User Second Hand Smoke Exposure: No - Caffeine Use Caffeine Use: Reports: None - Recreational Drug Use Recreational Drug Use: No - Living Situation & Occupation Living situation: Reports: , with Spouse, with Family (3 kids) 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 Denies: Chest Pain GI/Abdominal: Denies: Abdominal Pain, Nausea, Vomiting Musculoskeletal: Denies: Shoulder Pain, Arm Pain, Back Pain Neurological: Reports: Dizziness ED EXAM, GENERAL - Physical Exam Exam: See Below General Appearance: Alert, No Apparent Distress Head: Atraumatic Neck: Supple, Other (No JVD) Respiratory/Chest: No Respiratory Distress, Lungs Clear, Normal Breath Sounds. No: Rales, Rhonchi, Wheezing Cardiovascular: Tachycardia GI/Abdominal: Soft, Non-Tender Extremities: Normal Inspection. No: Leg Pain, Increased Warmth, Redness Neurological: Alert, Oriented, No Motor/Sensory Deficits Skin Exam: Warm, Dry, Normal Color Course - Vital Signs Last Recorded V/S: Last Vital Signs Temp 96.7 F L 09/24/21 09:05 Pulse 112 H 09/24/21 09:05 Resp 12 09/24/21 09:05 BP 129/86 09/24/21 09:05 Pulse Ox 100 09/24/21 09:05 - Orders/Labs/Meds Labs: Laboratory Tests 09/24/21 09/24/21 Range/Units 09:20 09:20 WBC 6.31 (4.23-9.07) K/mm3 RBC 5.52 (4.63-6.08) M/mm3 Hgb 17.2 (13.7-17.5) gm/dl Hct 48.2 (40.1-51.0) % MCV 87.3 (79.0-92.2) fl MCH 31.2 (25.7-32.2) pg MCHC 35.7 H (32.2-35.5) g/dl RDW Std Deviation 39.8 (35.1-43.9) fL Plt Count 254 (163-337) K/mm3 MPV 9.0 L (9.4-12.3) fl Neut % (Auto) 50.9 (34.0-67.9) % Lymph % (Auto) 38.7 (21.8-53.1) % [place] % (Auto) 9.0 (5.3-12.2) % Eos % (Auto) 1.0 (0.8-7.0) Baso % (Auto) 0.2 (0.1-1.2) % Neut # (Auto) 3.22 (1.78-5.38) K/mm3 Lymph # (Auto) 2.44 (1.32-3.57) K/mm3 [place] # (Auto) 0.57 (0.30-0.82) K/mm3 Eos # (Auto) 0.06 (0.04-0.54) K/mm3 Baso # (Auto) 0.01 (0.01-0.08) K/mm3 Sodium 140 (136-145) mEq/L Potassium 4.1 (3.5-5.1) mEq/L Chloride 106 (98-107) mEq/L Carbon Dioxide 27 (21-32) mEq/L Anion Gap 11.1 (5-15) BUN 13 (7-18) mg/dL Creatinine 1.1 (0.7-1.3) mg/dL Est Cr Clr Drug Dosing 77.01 mL/min Estimated GFR (MDRD) > 60 (>60) mL/min BUN/Creatinine Ratio 11.8 L (14-18) Glucose 129 H (70-99) mg/dL Calcium 9.2 (8.5-10.1) mg/dL Total Bilirubin 1.8 H (0.2-1.0) mg/dL AST 23 (15-37) U/L ALT 38 (16-63) U/L Alkaline Phosphatase 103 (46-116) U/L Total Protein 7.7 (6.4-8.2) g/dl Albumin 4.0 (3.4-5.0) g/dl Globulin 3.7 gm/dL Albumin/Globulin Ratio 1.1 (1-2) Departure - Departure Time of Disposition: 11:59 Disposition: Home, Self-Care 01 Condition: Fair Clinical Impression: Syncope, near A-fib Qualifiers: Atrial fibrillation type: unspecified chronic Qualified Code(s): I48.20 - Chronic atrial fibrillation, unspecified Instructions: Atrial Fibrillation, [id number] Referrals: Bandar Valdez MD [Primary Care Provider] - Forms: ED Department Discharge Additional Instructions: 48 hour holter moniter. Drink plenty of water to maintain hydration. Continue current medications as prescribed. If you become dizzy, lightheaded, or sweaty again get your head down as discussed to avoid passing out, possible injury. See Dr Tamayo this week if possible or otherwise next available appointment. Return to ED as needed. Sepsis Event Note (ED) - Evaluation Sepsis Screening Result: No Definite Risk - Focused Exam Vital Signs: Vital Signs Temp Pulse Resp BP Pulse Ox 09/24/21 09:05 96.7 F L 112 H 12 129/86 100
== END 2021-09-24 12:22 | disposition home or self-care (01) ==
LOC: JD.ED 08:59
DX: I48.20 Chronic atrial fibrillation, unspecified (principal); R55 Syncope and collapse; I10 Essential (primary) hypertension; E78.00 Pure hypercholesterolemia, unspecified; E66.9 Obesity, unspecified; Z68.41 Body mass index [BMI] 40.0-44.9, adult; Z79.82 Long term (current) use of aspirin; Z79.899 Other long term (current) drug therapy
CPT/HCPCS: 36415; 80053; 85025; 93005; 93225; 93226; 99285-25